=== PATIENT | male | born 1945 | race Caucasian/White ===

== ENCOUNTER 2017-09-24 08:19 | Day surgery (SDC) | payer MEDICARE, MEDICAID ==
[2017-09-10 10:28] VITALS: BMI 32.9
[2017-09-24 09:56] LABS: BLOOD UREA NITROGEN 12 mg/dL (9-20); CALCIUM 8.5 mg/dl (8.6-10.4); CARBON DIOXIDE 28 mmol/L (22-30); CHLORIDE 100 mmol/L (98-107); GFR AFRICAN-AMERICAN > 60; GLUCOSE,RANDOM 134 mg/dL (75-110); POTASSIUM 4.5 mmol/L (3.6-5.2); SODIUM 138 mmol/L (132-148)
[2017-09-24] MEDS ORDERED: Propofol 10 mg/ml Inj (20 ML) ONE ×2 (10:02→10:35)
[2017-09-24] MEDS ORDERED: Ofloxacin 0.3% Ophth Soln ONE (10:30)
[2017-09-24] MEDS ORDERED: Midazolam 2 MG/2 ML VIAL ONE (10:32)
[2017-09-24] MEDS ORDERED: Lactated Ringer's 1,000 ML IV ONE (11:35)
[2017-09-24] MEDS ORDERED: Morphine 10 mg/5 ml Oral Soln PO PRN (12:00)
[2017-09-24 12:07] VITALS: RESP 18; TEMP 97; O2SAT 100
[2017-09-24 14:32] VITALS: BP 123/72; PULSE 68
--- NOTE | 2017-09-27 07:20 | OP ---
PROCEDURE DATE: 09/24/2017 PREOPERATIVE DIAGNOSIS: Bilateral chronic otitis media. POSTOPERATIVE DIAGNOSIS: Bilateral chronic otitis media. PROCEDURE: Bilateral myringotomy with tubes. SIGNIFICANT FINDINGS: Fluid noted behind both TM. DESCRIPTION OF PROCEDURE: The patient was brought into the room, placed in the supine position, anesthesia was initiated through facemask. Patient was draped in the usual manner. The head was turned, the right ear was brought under the view using operative microscope and ear speculum. A radial incision was made in the anterior-inferior quadrant. Fluid was noted behind the TM and suctioned out. Tube was placed. Floxin was placed. The head was turned. The other ear was brought into the view using operative microscope and ear speculum. Radial incision was made in the anterior-inferior quadrant. Fluid was noted behind the TM and suctioned out. Tube was placed. Floxin was placed. Ear speculum and microscope were taken out of the patient. The patient was taken off the anesthesia and taken to the recovery room. Huy Briggs MD
== END 2017-09-24 14:35 | disposition home or self-care (01) ==
LOC: C.SDS 08:19
PROVIDERS: ATTEND Otolaryngology
DX: H66.13 Chronic tubotympanic suppurative otitis media, bilateral (principal)
CPT/HCPCS: 36415; 69436; 80048; 82948; J2250; J2704; J7120